=== PATIENT | female | born 1950 | race Caucasian/White ===

== ENCOUNTER 2017-12-30 19:25 | Emergency (ER) | payer MEDICARE, MEDICAID, SELFPAY ==
[2017-12-30 19:26] VITALS: BP 144/73; PULSE 97; RESP 16; TEMP 36.7; O2SAT 98; BMI 25.5
[2017-12-30 19:39] VITALS: BP 168/85; PULSE 92; RESP 14; O2SAT 95
--- NOTE | 2017-12-30 19:41 | ED.RN ---
NO OLD EKG'S IN MUSE
--- NOTE | 2017-12-30 19:52 | EKG12_ITS ---
Test Reason : CP Blood Pressure : / mmHG Vent. Rate : 092 BPM Atrial Rate : 092 BPM P-R Int : 160 ms QRS Dur : 074 ms QT Int : 366 ms P-R-T Axes : 071 013 047 degrees QTc Int : 452 ms Normal sinus rhythm Normal ECG Confirmed by VITALIY TOUSSAINT, SARY ([id number]), loan expeditor ANNITA LUCERO ([id number]) on 01/03/2018 2:10:26 PM Referred By: LENCHO Confirmed By:SARY BURKS MD
[2017-12-30 20:04] VITALS: BP 141/74; BP 144/86; BP 152/82; PULSE 86; PULSE 88; PULSE 94
[2017-12-30] MEDS: 0.9% Normal Saline 1,000 ML 999 ML IV (20:04)
--- NOTE | 2017-12-30 20:10 | RAD_ITS ---
STUDY: X-RAY CHEST REASON FOR EXAM: Female, 67 years old. Nausea and dizziness TECHNIQUE: Frontal and lateral views of the chest. COMPARISON: None. FINDINGS: The lungs are clear and expanded. There is no demonstrated pleural abnormality. Normal size heart. Normal mediastinum and alec. Normal visualized pulmonary arteries. Normal visualized aortic arch and descending thoracic aorta. Normal visualized thoracic spine. Normal visualized ribs, clavicles, and shoulders. There is no demonstrated abnormality of the visualized soft tissue structures of the upper abdomen. RAD/Chest PA and Lateral IMPRESSION: Normal x-ray examination of the chest. Electronically Signed: Angel Chan MD at 21:08 EST , Service support ,
[2017-12-30 20:12] LABS: Absolute Lymphocyte Count 2.29 X10^3/ul (0.83-4.51); Absolute Neutrophil Count 4.1 X10^3/uL (2.0-7.7); Basophil# 0.03 X10^3/uL; Basophil% 0.4 % (0-1); Eosinophil# 0.27 X10^3/uL; Eosinophils% 3.7 % (0-5); Hematocrit 37.9 % (37-47); Hemoglobin 12.5 g/dl (12.0-15.0); Lymphocyte # 2.29 X10^3/ul (4.0); Lymphocyte % 31.2 % (19-41); Mean Corpuscular Volume 87.9 fL (81-99); Mean Platelet Vol. 10.1 fl (6.2-12.0); Monocyte# 0.69 X10^3/uL; Monocyte% 9.4 % (0-10); Neutrophil # 4.06 X10^3/uL (2.7-7.7); Neutrophil % 55.2 % (47-70); Platelet Count 284 K/mm3 (150-450); RBC Distribution Width CV 13.8 % (11.6-14.6); RBC Distribution Width SD 44.3 fl (35.1-43.9); Red Blood Count 4.31 M/mm3 (4.2-5.4); White Blood Count 7.4 K/mm3 (4.4-11.0)
[2017-12-30 20:17] LABS: POSITIVE COUNT NO; POSITIVE DIFFERENTIAL NO; POSITIVE MORPHOLOGY NO
[2017-12-30 20:34] LABS: Anion Gap 7 (5-15); BUN 16 mg/dL (7-18); BUN/Creat Ratio 17.2 RATIO (10-20); Calcium,Total 9.3 mg/dL (8.5-10.1); Chloride 106 mmol/L (98-107); Creatinine, Serum 0.93 mg/dL (0.55-1.02); EST Glomerular Filtration Rate 64 mL/min (>60); Est Glom Filt Rate - Afr Amer 78 mL/min (>60); Estimated Creatinine Clearance 60.84 ml/min; Glucose 102 mg/dL (74-106); Potassium 3.6 mmol/L (3.5-5.1); Sodium Level 138 mmol/L (136-145)
--- NOTE | 2017-12-30 21:22 | ED.VISSUMM ---
- ER Visit Summary Date of Service: 12/30/17 Chief Complaint: Dizziness History of Present Illness: The patient is a 67 F who presents with dizziness. She states that she has been feeling fine and she has no recent illness. She was at a [employer] party. She began to feel lightheaded as if she may lose consciousness. This initially lasted about 1-2 minutes. Symptoms then returned and she also had nausea. This also lasted a couple of minutes. She had palpitations and felt like her heart was fluttering. Currently she is asymptomatic and her symptoms are resolved. She had similar symptoms about one half years ago and was evaluated in an emergency department at that time and also referred to cardiology for outpatient follow-up. She states no definitive cause was found. He denies any chest pain or shortness of breath. She denies history of dysrhythmia. Physical Examination: Afebrile vitals notable for blood pressure 168/85 otherwise normal Moist mucous membranes Heart regular rate and rhythm Lungs are clear Abdomen soft Test Results: EKG shows normal sinus rhythm at a rate of 92. CBC BMP troponin all normal. Orthostatic vital signs normal. Chest x-ray normal. Emergency Department Course and Treatment: Patient was asymptomatic on arrival here and has remained asymptomatic. She has an unremarkable workup. I did advise that if she continues to have the symptoms she may benefit from further outpatient workup such as Holter monitoring. She was advised to follow-up with her primary care physician. She was instructed on specific signs and symptoms to monitor for and conditions under which to return to the emergency department and she was discharged home. Treatment Plan: [] Disposition: Discharge Impression: Near syncope Palpitations This note was generated with [employer] dictation software. It may contain incorrect words, spelling, and punctuation that were not noted in review of the chart prior to signing ED Disposition - Plan for ED Patient: Chief Complaint: Dizziness Referrals: [facility] Doctor,Out of [Primary Care Provider] -
--- NOTE | 2017-12-30 21:25 | ED.DCSUM_ITS ---
- ER Visit Summary Date of Service: 12/30/17 Chief Complaint: Dizziness History of Present Illness: The patient is a 67 F who presents with dizziness. She states that she has been feeling fine and she has no recent illness. She was at a [employer]. She began to feel lightheaded as if she may lose consciousness. This initially lasted about 1-2 minutes. Symptoms then returned and she also had nausea. This also lasted a couple of minutes. She had palpitations and felt like her heart was fluttering. Currently she is asymptomatic and her symptoms are resolved. She had similar symptoms about one half years ago and was evaluated in an emergency department at that time and also referred to cardiology for outpatient follow-up. She states no definitive cause was found. He denies any chest pain or shortness of breath. She denies history of dysrhythmia. Physical Examination: Afebrile vitals notable for blood pressure 168/85 otherwise normal Moist mucous membranes Heart regular rate and rhythm Lungs are clear Abdomen soft Test Results: EKG shows normal sinus rhythm at a rate of 92. CBC BMP troponin all normal. Orthostatic vital signs normal. Chest x-ray normal. Emergency Department Course and Treatment: Patient was asymptomatic on arrival here and has remained asymptomatic. She has an unremarkable workup. I did advise that if she continues to have the symptoms she may benefit from further outpatient workup such as Holter monitoring. She was advised to follow-up with her primary care physician. She was instructed on specific signs and symptoms to monitor for and conditions under which to return to the emergency department and she was discharged home. Treatment Plan: [] Disposition: Discharge Impression: Near syncope Palpitations This note was generated with [employer] dictation software. It may contain incorrect words, spelling, and punctuation that were not noted in review of the chart prior to signing ED Disposition - Plan for ED Patient: Chief Complaint: Dizziness Referrals: [facility] Doctor,Out of [Primary Care Provider] -
--- NOTE | 2017-12-30 21:25 | ED.DEP ---
ED Disposition - Plan for ED Patient: Chief Complaint: Dizziness Instructions: ED Near Syncope Unkn, ED Palpitations Referrals: [facility],Out of [Primary Care Provider] -
[2017-12-30 21:31] VITALS: BP 143/79; PULSE 75; RESP 17; O2SAT 97
--- NOTE | 2017-12-30 21:32 | ED.RN ---
IV DC'ED, CATHETER INTACT, SMALL GAUZE DRESSING PLACED. DISCHARGE INSTRUCTIONS GIVEN TO AND REVIEWED WITH PATIENT, PATIENT DENIES QUESTIONS OR CONCERNS AND VOICES UNDERSTANDING OF DISCHARGE INSTRUCTIONS. PT AMBULATES OUT OF ROOM WITHOUT DIFFICULTY.
== END 2017-12-30 21:32 | disposition home or self-care (01) ==
PROVIDERS: Emergency Provider Emergency Medicine
DX: R55 Syncope and collapse (principal); R00.2 Palpitations; J45.909 Unspecified asthma, uncomplicated
CPT/HCPCS: 71046; 80048; 84484; 85025; 93005; 99285; J7030; A4216